=== PATIENT | male | born 1945 | race Caucasian/White ===

== ENCOUNTER 2020-07-28 11:51 | Emergency (ER) | payer MEDICARE, BC ==
[~2020-07-28] VITALS: Ht 172.7 cm; Wt 72.6 kg
[2020-07-28] MEDS ORDERED: ENTRESTO 24 MG1 EACH PO (12:10)
[2020-07-28] MEDS ORDERED: RANOLAZINE ER500 MG PO (12:10)
[2020-07-28] MEDS ORDERED: PANTOPRAZOLE SO40 MG PO (12:10)
[2020-07-28] MEDS ORDERED: ATORVASTATIN CA40 MG PO (12:10)
== END 2020-07-28 14:20 | disposition home or self-care (01) ==
LOC: ED 11:51
DX: R07.89 Other chest pain (principal); Z79.899 Other long term (current) drug therapy
CPT/HCPCS: 71046; 99284-25

== ENCOUNTER 2022-03-17 14:36 | Emergency (ER) | payer MEDICARE, BC ==
[~2022-03-17] VITALS: Ht 172.7 cm; Wt 74.0 kg
[~2022-03-17 14:36] MED LIST: ATORVASTATIN CA40 MG PO; ENTRESTO 24 MG1 EACH PO; PANTOPRAZOLE SO40 MG PO; RANOLAZINE ER500 MG PO
[2022-03-17] MEDS ORDERED: LATANOPROST2.5 ML OPTH (14:55)
[2022-03-17] MEDS ORDERED: CLOPIDOGREL75 MG PO (14:55)
[2022-03-17] MEDS ORDERED: CARVEDILOL6.25 MG PO (14:55)
--- NOTE | 2022-03-17 16:50 | EKG ---
[facility] [address] [facility] [place] [address] Signed Normal sinus rhythm Left axis deviation Abnormal ECG No previous ECGs available Confirmed by DON LATIF MD ([id number] on 03/17/2022 4:50:17 PM Electronically Signed By: DON LATIF MD 03/17/220 PATIENT NAME: TYLER RUDOLPH Electrocardiogram DATE OF : 41 PHYSICIAN: DON LATIF MD REPORT #: [id number] REPORT IS CONFIDENTIAL AND NOT TO BE RELEASED WITHOUT AUTHORIZATION
== END 2022-03-17 17:49 | disposition home or self-care (01) ==
LOC: ED 14:36
DX: R42 Dizziness and giddiness (principal); R00.2 Palpitations; Z79.899 Other long term (current) drug therapy
CPT/HCPCS: 36415; 80053; 83735; 84484; 85025; 93005; 93010